=== PATIENT | male | born 1990 | race Caucasian/White ===

== ENCOUNTER 2018-11-11 23:14 | Emergency (ER) | payer SELFPAY ==
[2018-11-11 23:35] LABS: BILIRUBIN,URINE NEGATIVE (NEGATIVE); GLUCOSE, URINE (UA) NEGATIVE (NEGATIVE); KETONES,URINE (UA) NEGATIVE (NEGATIVE); LEUKOCYTE ESTERASE, URINE MODERATE (NEGATIVE); NITRITE,URINE POSITIVE (NEGATIVE); OCCULT BLOOD,URINE LARGE (NEGATIVE); PH,URINE 6.5 PH (5.0-7.5); PROTEIN,URINE TRACE mg/dL (NEGATIVE); UROBILINOGEN,URINE 0.2 (NORMAL) E.U./dL (NORMAL)
[2018-11-11 23:36] LABS: CLARITY,URINE CLEAR (CLEAR)
[2018-11-11 23:42] LABS: BACTERIA,URINE Few /HPF (None Seen); SQUAMOUS EPITHELIAL CELL,UR NONE SEEN (<= Few)
[2018-11-11] MEDS ORDERED: SODIUM CHLORIDE 0.9% 1,000 ML IV ONE (23:52)
[2018-11-11] MEDS ORDERED: HYDROmorphone 1 MG/ML CARPUJECT IVP STA (23:52)
[2018-11-11] MEDS ORDERED: ONDANSETRON 4 MG/2 ML VIAL IVP STA (23:52)
--- NOTE | 2018-11-11 23:56 | ED Physician Documentation ---
PD HPI ABD PAIN - Stated complaint Stated Complaint: BACK PX - Chief complaint Chief Complaint: Abd Pain - History obtained from History obtained from: Patient - History of Present Illness Timing - onset: Enter time (1999) Timing - duration: Minutes Timing - details: Abrupt onset, Still present Quality: Cramping, Sharp, Pain Location: RUQ Radiation: Right flank Improved by: Vomiting Worsened by: Other (normal) Associated symptoms: Nausea, Vomiting. No: Fever Similar symptoms before: Has not had sx before Recently seen: Not recently seen - Additional information Additional information: 28-year-old male with sudden onset of right flank pain at about 9 PM today has severe pain without modifying factors. He does have a past history of hematuria for which he saw a urologist in [facility]. He did not have imaging done at that time and this was about 1 year ago. Review of Systems Constitutional: reports: Fever Eyes: denies: Decreased vision Ears: denies: Ear pain Nose: denies: Rhinorrhea / runny nose, Congestion Throat: denies: Sore throat Cardiac: denies: Chest pain / pressure Respiratory: denies: Dyspnea, Cough GI: reports: Abdominal Pain, Nausea, Vomiting. denies: Constipation, Diarrhea : denies: Dysuria, Frequency Skin: denies: Rash Musculoskeletal: reports: Back pain. denies: Neck pain Neurologic: denies: Generalized weakness, Focal weakness, Numbness PD PAST MEDICAL HISTORY - Past Medical History Past Medical History: No - Past Surgical History Past Surgical History: No - Present Medications Home Medications: Ambulatory Orders Medication Instructions Recorded Confirmed Cephalexin [Keflex] 500 mg PO Q6H #28 capsule 11/12/18 Hydrocodone/Acetaminophen 1 - 2 each PO Q6H PRN #14 tablet 11/12/18 [Hydrocodon-Acetaminophen 5-325] - Allergies Allergies/Adverse Reactions: Allergies Allergy/AdvReac Type Severity Reaction Status Date / Time No Known Drug Allergies Allergy Verified 11/11/18 23:20 - Social History Does the pt smoke?: No Smoking Status: Never smoker Does the pt drink ETOH?: No Does the pt have substance abuse?: No - Immunizations Immunizations are current?: No - POLST Patient has POLST: No PD ED PE NORMAL - Vitals Vital signs reviewed: Yes (hypertensive ) - General General: Alert and oriented X 3, Well developed/nourished, Other (appears to be in pain ) - HEENT HEENT: Atraumatic, PERRL, EOMI - Neck Neck: Supple, no meningeal sign, No bony TTP - Cardiac Cardiac: RRR, No murmur - Respiratory Respiratory: No respiratory distress, Clear bilaterally - Abdomen Abdomen: Normal bowel sounds, Soft, Non tender, Non distended, No organomegaly - Back Back: No CVA TTP, No spinal TTP - Derm Derm: Normal color, Warm and dry, No rash - Extremities Extremities: No deformity, No edema, No calf tenderness / cord - Neuro Neuro: Alert and oriented X 3, research mechanic 2-12 intact, No motor deficit, No sensory deficit, Normal speech Eye Opening: Spontaneous Motor: Obeys Commands Verbal: Oriented GCS Score: 15 - Psych Psych: Normal mood, Normal affect Results - Vitals Vitals: Vital Signs - 24 hr 11/11/18 11/12/18 11/12/18 23:17 00:33 02:25 Temperature 36.5 C 37.5 C 36.8 C Heart Rate 64 73 88 Respiratory 18 16 15 Rate Blood Pressure 160/79 H 128/78 115/67 O2 Saturation 97 96 97 Oxygen O2 Source Room air - Labs Labs: Laboratory Tests 11/11/18 11/11/18 11/11/18 23:25 23:30 23:30 WBC 12.6 H RBC 4.33 L Hgb 13.6 L Hct 40.1 L MCV 92.6 MCH 31.4 H MCHC 33.9 RDW 11.7 L Plt Count 204 MPV 11.8 H Neut # (Auto) 8.8 H Lymph # (Auto) 2.8 Tom[place]kins # (Auto) 0.8 Eos # (Auto) 0.2 Baso # (Auto) 0.1 Absolute Nucleated RBC 0.00 Nucleated RBC % 0.0 Sodium 140 Potassium 3.5 Chloride 99 L Carbon Dioxide 28 Anion Gap 13.0 BUN 21 H Creatinine 1.7 H Estimated GFR (MDRD) 49 L Glucose 125 H Calcium 9.1 Total Bilirubin 0.6 AST 28 ALT 23 Alkaline Phosphatase 45 Total Protein 7.7 Albumin 4.5 Globulin 3.2 Albumin/Globulin Ratio 1.4 Lipase 37 Urine Color YELLOW Urine Clarity CLEAR Urine pH 6.5 Ur Specific [place] <=1.005 Urine Protein TRACE Urine Glucose (UA) NEGATIVE Urine Ketones NEGATIVE Urine Occult Blood LARGE H Urine Nitrite POSITIVE H Urine Bilirubin NEGATIVE Urine Urobilinogen 0.2 (NORMAL) Ur Leukocyte Esterase MODERATE H Urine RBC 11-25 H Urine WBC 6-10 H Ur Squamous Epith Cells NONE SEEN Urine Bacteria Few Ur Microscopic Review INDICATED Urine Culture Comments INDICATED - Rads (name of study) CT Radiology: Prelim report reviewed (Impression: 1. Mildly obstructing 2 x 2 mm right UVJ stone. 2. Mildly to moderately obstructing 14 x 14 x 21 mm left UPJ stone. Additional smaller nonobstructing stones clustered at the left lower pole measuring up to at least 6 mm.), EMP read indepedently, See rad report PD MEDICAL DECISION MAKING - ED course Complexity details: reviewed results, re-evaluated patient, considered grace montenegro, d/w patient, d/w family ED course: 28-year-old male who has acute right flank pain that resolves while he is here in the emergency department has what appears to be a stone in the right distal UVJ which is small and likely passed during the patient's stay in the ED as his pain resolved and did not return. There are larger stones in the left renal pelvis and in the kidney and these are asymptomatic, have likely been in place for extended time and there is elevation of the cr to 1.7 likely related and chronic. He will need to follow up with urology for treatment of these large stones. Today there is evidence of infection as well and the patient is administered IV Rocephin and we will place him on some keflex. Departure - Departure Disposition: 01 Home, Self Care Clinical Impression: Ureterolithiasis, Staghorn renal calculus, Urinary tract infection Condition: Stable Instructions: ED UTI Cystitis Male, ED Stone Renal W Colic Follow-Up: Aric Barney MD [Physician No Access] - Prescriptions: Cephalexin [Keflex] 500 mg PO Q6H #28 capsule Hydrocodone/Acetaminophen [Hydrocodon-Acetaminophen 5-325] 1 - 2 each PO Q6H PRN #14 tablet PRN Reason: pain Comments: Today it appears your pain was related to a small stone in the distal right ureter. This appears to have likely passed. There is a problem with larger stones in the left kidney and there is evidence of some renal compromise. Today your "creatinine" is 1.7 (normal is 1.0) and indicates there is likely an issue with the larger stones chronically blocking the left kidney. A follow up with urology is indicated as these will likely need to be removed. Today it appears there is infection involved as well. Take the antibiotic prescribed and follow up with the urologist. If you become ill with fever or develop new symptoms follow up here immediately as infection in a stone can be a bigger problem. Forms: Activity restrictions Discharge Date/Time: 11/12/18 02:40
[2018-11-12] MEDS ORDERED: cefTRIAXone 1 GM in SODIUM CHLORIDE 0.9% MINIBAG 100 ML IV STA (00:31)
--- NOTE | 2018-11-12 00:40 | CT Report ---
Reason: R flank pain and hydro on bedside Procedure Date: 11/12/2018 Accession Number: [id number] / [id number] Procedure: CT - Abdomen/Pelvis WO CPT Code: FULL RESULT: EXAM: CT ABDOMEN AND PELVIS (CT KUB) EXAM DATE: 11/12/2018 12:30 AM. CLINICAL HISTORY: Right flank pain and hydro on bedside. COMPARISONS: None. TECHNIQUE: Routine axial helical CT imaging was performed through the abdomen and pelvis without IV contrast. Reconstructions: Coronal and sagittal. In accordance with CT protocol optimization, one or more of the following dose reduction techniques were utilized for this exam: automated exposure control, adjustment of mA and/or KV based on patient size, or use of iterative reconstructive technique. FINDINGS: Lung Bases: Unremarkable. Right Kidney/Ureter: Mildly obstructing 4 x 2 mm right UVJ stone. Otherwise grossly unremarkable. Left Kidney/Ureter: Mildly to moderately obstructing 14 x 14 x 21 mm left UPJ stone. Additional smaller nonobstructing stones clustered at the left lower pole measuring up to at least 6 mm. Other Abdominal Organs: Noncontrast images of the abdominal organs are grossly unremarkable. Peritoneal Cavity: No free fluid, free air or yamile adenopathy. No excessive stool burden. Bowel is grossly unremarkable. Pelvic Organs: No other bladder stones or gross wall thickening. Noncontrast images of the visualized pelvic organs are unremarkable. Vasculature: Unremarkable. Other: None. IMPRESSION: 1. Mildly obstructing 2 x 2 mm right UVJ stone. 2. Mildly to moderately obstructing 14 x 14 x 21 mm left UPJ stone. Additional smaller nonobstructing stones clustered at the left lower pole measuring up to at least 6 mm. RADIA
[2018-11-12 00:46] LABS: BASOPHILS # (AUTO) 0.1 10^3/uL (0.0-0.1); BASOPHILS % (AUTO) 0.6 %; EOSINOPHILS # (AUTO) 0.2 10^3/uL (0.0-0.7); EOSINOPHILS % (AUTO) 1.2 %; HGB - HEMOGLOBIN 13.6 g/dL (14.0-18.0); LYMPHOCYTES # (AUTO) 2.8 10^3/uL (1.5-3.5); LYMPHOCYTES % (AUTO) 22.4 %; MEAN CORPUSCULAR HEMOGLOBIN 31.4 pg (27.0-31.0); MEAN CORPUSCULAR HGB CONC 33.9 g/dL (32.0-36.0); MEAN CORPUSCULAR VOLUME 92.6 fL (80.0-94.0); MEAN PLATELET VOLUME 11.8 fL (7.4-11.4); MONOCYTES # (AUTO) 0.8 10^3/uL (0.0-1.0); MONOCYTES % (AUTO) 5.9 %; NEUTROPHILS # (AUTO) 8.8 10^3/uL (1.5-6.6); NEUTROPHILS % (AUTO) 69.4 %; PLT - PLATELET COUNT 204 10^3/uL (130-450); RED BLOOD COUNT 4.33 10^6/uL (4.70-6.10); RED CELL DISTRIBUTION WIDTH 11.7 % (12.0-15.0); WHITE BLOOD COUNT 12.6 x10^3/uL (4.8-10.8)
[2018-11-12 00:56] LABS: ALBUMIN 4.5 g/dL (3.2-5.5); ALBUMIN/GLOBULIN RATIO 1.4 (1.0-2.2); BILIRUBIN,TOTAL 0.6 mg/dL (0.2-1.0); CALCIUM 9.1 mg/dL (8.5-10.3); CREATININE 1.7 mg/dL (0.6-1.2); TOTAL PROTEIN 7.7 g/dL (6.7-8.2)
[2018-11-12 02:43] VITALS: BP 115/67
== END 2018-11-12 02:40 | disposition home or self-care (01) ==
LOC: ED 23:14
DX: N20.2 Calculus of kidney with calculus of ureter (principal); N39.0 Urinary tract infection, site not specified
CPT/HCPCS: 36415; 74176; 80053; 81001; 83690; 85025; 87086; 96365; 96375; 99283; 99284; J1170; 81003